=== PATIENT | female | born 1980 | race Caucasian/White ===

== ENCOUNTER → 2019-10-08 | Outpatient (CLI) | payer BC ==
--- NOTE | 2019-10-08 14:37 | MM ---
Reason for exam: clinical finding. Baseline mammogram. History: Patient had first child at age 33. Family history of breast cancer in mother, breast cancer in maternal grandmother, breast cancer in paternal grandmother, and breast cancer in maternal aunt. Physical Findings: Nurse Summary: 1cm nodule in the left breast at 1 o'clock (nurse demario). MG 3D Diag Mammo W/Cad LIZBETH Bilateral CC, MLO, and XCCL view(s) were taken. LM view(s) were taken of the left breast. The breast tissue is heterogeneously dense. This may lower the sensitivity of mammography. There is a spiculated 1.0cm mass in the left upper outer quadrant at the palpable. 3cm posterior to this there is a second upper outer quadrant 0.8cm mass. Just anterior and medial to the palpable mass there is architectural distortion. There are linear branching calcifications in the left upper outer quadrant spanning 3.0cm. No suspicious abnormality on the right breast. In the left lower inner quadrant 15cm from nipple there is a 4mm mass that does persist on additional images. These results were verbally communicated with the patient and result sheet given to the patient on 10/08/19. ASSESSMENT: Incomplete: need additional imaging evaluation, BI-RAD 0 RECOMMENDATION: Ultrasound of the left breast.
--- NOTE | 2019-10-08 14:42 | USB ---
Reason for exam: additional evaluation requested from abnormal screening. History: Patient had first child at age 33. Family history of breast cancer in mother, breast cancer in maternal grandmother, breast cancer in paternal grandmother, and breast cancer in maternal aunt. US Breast Workup LT Left complete breast ultrasound includes all four quadrants, the retroareolar region and axilla. Finding demonstrates a 1.1 x 1.1 x 1.5cm taller than wide, spiculated, solid lesion at 2 o'clock biopsy recommended, a 0.6 x 0.7 x 0.6cm taller than wide, spiculated, solid lesion at 2 o'clock biopsy recommended, a 0.7 x 0.7 x 0.6cm oval, hypoechoic lesion at 2 o'clock some increase through transmission, complicated cyst and a 1.0 x 0.8 x 0.7cm irregular, hypoechoic lesion at 2 o'clock biopsy recommended. No suspicious axillary adenopathy. These results were verbally communicated with the patient and result sheet given to the patient on 10/08/19. ASSESSMENT: Highly suggestive of malignancy, BI-RAD 5 RECOMMENDATION: Ultrasound core biopsy of the left breast. (x 2-3) Stereotactic core biopsy of the left breast. (lower inner quadrant) Called Dr. Pimentel's office with mammographic findings and has scheduled an appointment for the patient for 11/05/19 at 10:[address] Niño. Biopsy scheduled for 10/15/19 at 10:20. PRELIMINARY REPORT CALLED AND FAXED TO DR. NIÑO ON 10/08/19.
== END | disposition home or self-care (01) ==
LOC: RADMAMWWP 09:57
PROVIDERS: ATTEND Obstetrics & Gynecology
DX: N63.21 Unspecified lump in the left breast, upper outer quadrant (principal); R92.8 Other abnormal and inconclusive findings on diagnostic imaging of breast
CPT/HCPCS: 77062; 77066

== ENCOUNTER → 2019-10-15 | Outpatient (CLI) | payer BC ==
[2019-10-15 09:40] VITALS: RESP 16
[2019-10-15 11:54] VITALS: BP 137/83; PULSE 101; TEMP 98
--- NOTE | 2019-10-15 12:37 | MM ---
EXAMINATION TYPE: MG stereo VAD BX LT DATE OF EXAM: 10/15/2019 COMPARISON: Mammogram dated 10/08/2019 CLINICAL HISTORY: Abnormal mammogram. 4 mm mass in the lower inner quadrant of the left breast approx imately 15 cm from the nipple without sonographic correlate TECHNIQUE: Stereotactic guided core biopsy of left breast. FINDINGS: The procedure of stereotactic guided core biopsy was explained to the patient. Benefits, a lternatives, and risks were discussed. An informed consent was then obtained. Preprocedural timeout was performed. The pathway was chosen that best demonstrated the radiographic abnormality. This was CC from below a pproach. Preprocedural localization images were obtained and a 4 mm mass in the lower inner quadrant of the left breast was demonstrated. Coordinates were calculated. Subsequently 7 cc of lidocaine with out epinephrine was utilized to anesthetize the skin and deeper subcutaneous soft tissues. The needle was advanced to the appropriate depth. Prefire images were obtained ensuring appropriate location. P ostfire injection of 6 cc of lidocaine with epinephrine was utilized to anesthetize the site of biops y. A vacuum assisted biopsy gun was used to obtain 7 core samples. The patient tolerated the procedure well without any immediate complication. The patient was kept in the radiology department for short stay after the procedure and then discharged home in stable condi tion. Post biopsy mammogram shows the T-shaped biopsy marker to appear in satisfactory position rela tive to the targeted area of concern on the preprocedure images without migration. IMPRESSION: SUCCESSFUL, UNCOMPLICATED STEREOTACTIC GUIDED CORE BIOPSY OF A 4 MM MASS IN THE LOWER INNER QUADRANT OF THE LEFT BREAST, FULL PATHOLOGY RESULTS TO FOLLOW.
--- NOTE | 2019-10-15 13:07 | USB ---
EXAMINATION TYPE: US biopsy breast VAD LT, US biopsy breast add'l VAD LT DATE OF EXAM: 10/15/2019 CLINICAL HISTORY: R92.8 abn mammogram. TECHNIQUE: Ultrasound guided core biopsy of left breast. COMPARISON: Left breast mammogram and ultrasound dated 10/08/2019 FINDINGS: Consultation with the patient prior to the stereotactic guided biopsy and ultrasound-guided biopsy was had discussed the multiple sites requiring biopsy. The procedure of ultrasound guided cor e biopsy was explained to the patient. Benefits, alternatives, and risks were discussed. An informe d consent was then obtained. Preprocedural timeout was performed. Site A: The patient was placed in supine positioning for imaging and for the procedure. The overlyin g skin was prepped and draped in usual sterile fashion. 8 cc of 1% lidocaine was used as anesthetic i nto the skin and subcutaneous tissue up to an approximately 1.6 cm mass at the 2:00 position in the l eft breast. Under ultrasound guidance, a 12-gauge vacuum assisted biopsy gun device was used to obtain 7 core juan ples. Following this, a ribbon-shaped biopsy marker was left in mass. Site B: The patient was placed in supine positioning for imaging and for the procedure. The overlyin g skin was prepped and draped in usual sterile fashion. 8 cc of 1% lidocaine was used as anesthetic i nto the skin and subcutaneous tissue up to approximately 1 cm mass at the 2:00 position in the left b reast. Under ultrasound guidance, a 12-gauge vacuum assisted biopsy gun device was used to obtain 4 core juan ples. Following this, a coil-shaped biopsy marker biopsy marker was left in mass. Postprocedure mammogram demonstrates appropriate biopsy marker placement. The patient tolerated the p rocedure well without any immediate complication. The patient was kept in the radiology department f or short stay after the procedure and then discharged home in stable condition. IMPRESSION: Successful, uncomplicated ultrasound guided core biopsy of two highly suspicious masses a t the 2:00 position in the left breast, full pathology results to follow. Of note there are BI-RADS 5 highly suspicious linear branching calcifications in the left upper outer quadrant spanning 3 cm meena t are seen just anterior to the palpable mass and a third suspicious mass on ultrasound also at the 2 :00 position. Only 3 biopsies were performed in one day given the maximum dose of lidocaine. Biopsy w as performed of the lower inner quadrant mass under stereotactic technique to exclude multicentric di sease and biopsy was performed of the 2 furthest apart sonographic masses.
== END | disposition home or self-care (01) ==
LOC: RADMAMWWP 09:23
PROVIDERS: ATTEND Surgery
DX: N63.24 Unspecified lump in the left breast, lower inner quadrant (principal)
CPT/HCPCS: 19081; 19083; 19084; A4648 ×2; J2001

== ENCOUNTER → 2019-11-10 | Outpatient (CLI) | payer BC ==
[2019-11-10 09:10] LABS: HCT 43.4 % (34.0-46.0); MCH 29.8 pg (25.0-35.0); MCHC 32.4 g/dL (31.0-37.0); MCV 92.1 fL (80.0-100.0); Mean Platelet Volume 7.7; Platelet Count 255 k/uL (150-450); RBC 4.71 m/uL (3.80-5.40); RDW 12.1 % (11.5-15.5); WBC 5.2 k/uL (3.8-10.6)
[2019-11-10 17:40] LABS: African American GFR (CKD) 125.6 (60.0-200.0); Albumin 4.7 g/dL (3.80-4.90); Albumin/Globulin Ratio 2.14 (1.60-3.17); Anion Gap 12.9 mmol/L (4.00-12.00); BUN/Creat Ratio 11.43 Ratio (12.00-20.00); Calcium 9.8 mg/dL (8.7-10.3); Carbon Dioxide 23.1 mmol/L (21.6-31.8); Globulin 2.2 g/dL (1.6-3.3); Non-African American GFR(CKD) 108.4 (60.0-200.0); Potassium 4.6 mmol/L (3.5-5.5); Total Bilirubin 0.7 mg/dL (0.2-1.2); Total Protein 6.9 g/dL (6.2-8.2)
== END | disposition home or self-care (01) ==
LOC: LABWHC1 08:36
PROVIDERS: ATTEND Surgery
DX: C50.912 Malignant neoplasm of unspecified site of left female breast (principal)
CPT/HCPCS: 36415; 80053; 85027

== ENCOUNTER 2019-11-17 06:34 | Observation (INO) | payer BC ==
[2019-11-13 15:11] VITALS: BMI 34.4
--- NOTE | 2019-11-16 20:29 | P.GSHP ---
History of Present Illness H&P Date: 11/16/19 Chief Complaint: Left breast cancer 39-year-old female seen in mid October. She had complaints of mild pain left breast upper outer Pain radiated to the left axilla. Family history of breast cancer inernal aunt, maternal grandmother, paternal grandmother. Patient had a m ammogram showing abnormalities were breast upper outer quadrant and lower inner quadrant. She underwent ultrasound confirming 3 separate lesions upper outer quadrant. Ultrasound core biopsy of 2 of the furthest apparent lesions positive for grade 3 invasive ductal cancer. Stereo biopsy lower inner quadrant benign and concordant. ER/AK positive, HER-2/nasim negative. Patient has been interested in bilateral mastectomy with reconstruction since first evaluation. Past Medical History Past Medical History: Cancer, GERD/Reflux Additional Past Medical History / Comment(s): Left breast cancer, sinus arrhythmia, murmur, seasonal allergies. History of Any Multi-Drug Resistant Organisms: None Reported Past Surgical History: Section, Tubal Ligation Additional Past Surgical History / Comment(s): Finger surgery d/t infection, ectopic , Section X2. Past Anesthesia/Blood Transfusion Reactions: No Reported Reaction Past Psychological History: Anxiety, Depression Smoking Status: Never smoker Past Alcohol Use History: Rare Past Drug Use History: None Reported - Past Family History Mother Family Medical History: Cancer Additional Family Medical History / Comment(s): Breast cancer. Father Family Medical History: Diabetes Mellitus Medications and Allergies Home Medications Medication Instructions Recorded Confirmed Type ALPRAZolam [Xanax] 0.25 mg PO DAILY PRN 11/13/19 11/13/19 History Famotidine 20 mg PO DAILY 11/13/19 11/13/19 History Allergies Allergy/AdvReac Type Severity Reaction Status Date / Time No Known Allergies Allergy Verified 11/13/19 15:12 Surgical - Exam Physical exam: General: Well-developed, well-nourished HEENT: Normocephalic, sclerae nonicteric Left breast: 2 separate masses upper outer by 4 cm each measuring 1- 1.5 cm, no adenopathy, no other masses Right breast: No masses, no adenopathy Abdomen: Nontender, nondistended Extremities: No edema Neuro: Alert and oriented Assessment and Plan (1) Breast cancer, left Narrative/Plan: 39-year-old female with recently diagnosed left breast cancer. Genetic testing pending. Patient interested in bilateral mastectomy with reconstruction. She has been seen by plastic surgery. We'll proceed with bilateral simple mastectomy, left breast sentinel lymph biopsy and injection, possible axillary node dissection, with reconstruction by plastics. Risks of bleeding, infection, flap ischemia, seroma, scarring, dimpling, pain, nerve injury, numbness, recurrence, lymphedema, possible need for additional surgeries reviewed. The patient understands and wishes to proceed. Status: Acute Code(s): C50.912 - MALIGNANT NEOPLASM OF UNSPECIFIED SITE OF LEFT FEMALE BREAST SNOMED Code(s): 048446578
--- NOTE | 2019-11-16 20:32 | P.NAPBC ---
NAPBC Queries - NAPBC Queries Was patient's case review presented at [facility] tumor board? If no, comment.: Yes Was patient's pathology reviewed at [facility]? If no, comment.: Yes Was breast conservation surgery offered? If no, comment.: Yes Was sentinel node biopsy offered? If no, comment.: Yes Was diagnosis confirmed by percutaneous core biopsy? If no, comment.: Yes Is patient mastectomy patient?: Yes Was a preop referral to reconstructive surgeon offered?: Yes Clinical Stage: Clinical stage II a
[~2019-11-17 06:34] MED LIST: DEXAMETHASONE SOD PHOSPHATE 10 MG/ML 1 ML VIAL IV ONE; LIDOCAINE 1% 20 ML VIAL (10MG/ML) FOR IV START INTRADERMA PRN; ONDANSETRON 4 MG/2 ML VIAL IVP ONE; Pre Op ABX Message 1 EACH MISC MISCELLANE ONE; SCOPOLAMINE 1.5MG/72HR PATCH TRANSDERM ONE
[2019-11-17] MEDS: LACTATED RINGERS 1,000 ML IV SCH (07:24)
[2019-11-17] MEDS ORDERED: MIDAZOLAM 2 MG/2 ML VIAL IVP ONE ×2 (08:05→08:42)
[2019-11-17] MEDS ORDERED: fentaNYL (PF) 50 MCG/ML 2 ML AMP IVP ONE (08:42)
[2019-11-17] MEDS ORDERED: MIDAZOLAM 2 MG/2 ML VIAL ONE (08:56)
[2019-11-17] MEDS ORDERED: ROPIVACAINE 5 MG/ML 30 ML VIAL ONE (08:56)
[2019-11-17] MEDS ORDERED: LIDOCAINE 1% INJ 10MG/ML (20 ML MDV) ONE (08:56)
[2019-11-17] MEDS ORDERED: NEOSTIGMINE 1 MG/ML 10 ML VIAL ONE (08:56)
[2019-11-17] MEDS ORDERED: fentaNYL (PF) 50 MCG/ML 2 ML AMP ONE (08:56)
[2019-11-17] MEDS ORDERED: GLYCOPYRROLATE 0.2 MG/ML 2 ML VIAL ONE (08:56)
[2019-11-17] MEDS ORDERED: ROCURONIUM BROMIDE 10 MG/ML 5 ML VIAL IV ONE (08:56)
[2019-11-17] MEDS ORDERED: PROPOFOL 10 MG/ML 20 ML VIAL IV ONE (08:56)
[2019-11-17] MEDS ORDERED: ONDANSETRON 4 MG/2 ML VIAL ONE (08:56)
[2019-11-17] MEDS ORDERED: ceFAZolin 1,000 MG VIAL ONE (08:56)
[2019-11-17] MEDS ORDERED: SODIUM CHLORIDE 0.9% 50 ML with ceFAZolin 2,000 MG IV ONE ×2 (08:58)
--- NOTE | 2019-11-17 09:55 | NM ---
EXAMINATION TYPE: NM sentinel node injection DATE OF EXAM: 11/17/2019 COMPARISON: NONE HISTORY: LEFT BREAST CANCER TECHNIQUE AND FINDINGS: The procedure of sentinel lymph node injection was explained to the patient. The benefits, alternatives, and risks were discussed. An informed consent was then obtained. Overlying skin is cleaned with sterile alcohol. Following this, 521 uCi Tc99m Tilmanocept was inject ed in the upper outer aspect of the left nipple intradermally. The patient tolerated the procedure well without any immediate complication. The patient was kept in the radiology department for short stay after the procedure and then taken to surgery for surgical p rocedure what is presumed intraoperative gamma probe will be used for sentinel lymph node detection. IMPRESSION: Left breast radiotracer injection for sentinel node localization as above.
[2019-11-17] MEDS ORDERED: LACTATED RINGERS 1,000 ML IV ONE ×2 (10:17→11:49)
--- NOTE | 2019-11-17 10:40 | P.ANPRN ---
Procedure Note - Anesthesia - Nerve Block Performed Bilateral Other (see comment) Single Time Out Performed: Yes (841) Date of Procedure: 11/17/19 Procedure Start Time: 08:42 Procedure Stop Time: 08:49 Location of Patient: PreOp Indication: Acute Post-Operative Pain, Requested by Surgeon Specifically requested for management of pain by DrVictorino: Dalton Mullins Sedation Type: Sedate with meaningful contact maintained Preparation: Sterile Prep Position: Supine Catheter: None Needle Types: Pajunk Needle Gauge: 21, Other (see comment) (2 in x 2) Ultrasound used to visualize needle placement: Yes Ultrasound used to observe medication spread: Yes Injectate: 0.5% Ropivacaine (see comment for volume) (15cc on each side Divided for Pec 1 and 2) Blood Aspirated: No Pain Paresthesia on Injection Noted: No Resistance on Injection: Normal Image Stored and Saved: Yes Events: Uneventful and Well Tolerated
[2019-11-17] MEDS ORDERED: NALOXONE 0.4 MG/ML 1 ML VIAL IV PRN (12:13)
[2019-11-17] MEDS ORDERED: ONDANSETRON 4 MG/2 ML VIAL IVP PRN (12:13)
--- NOTE | 2019-11-17 12:21 | P.OP ---
Date of Procedure: 11/17/19 Procedure(s) Performed: PREOPERATIVE DIAGNOSIS: Left breast cancer POSTOPERATIVE DIAGNOSIS: Same PROCEDURE: Bilateral simple mastectomy with sentinel lymph node biopsy left breast with concurrent reconstruction SURGEON: Sam ANDERSL: See anesthesia records ANESTHESIA: General COMPLICATIONS: None OPERATIVE PROCEDURE: Patient was placed on the operating room table in the supine position. 2 mL of methylene blue was injected into the left subareolar space. The breast was then massaged for 5 minutes. The upper torso anteriorly was prepped and draped in usual sterile fashion. The left side was first addressed. The neoprobe was used to identify the hot spot in the left axilla. A curvilinear left axillary incision was made using a scalpel. Dissection through the subcutaneous tissues took place using electrocautery. The first sentinel node was identified. There appeared to be an adjacent one or possibly 2 nodes with this node. This was not blue in color. The size of the nodes were normal but given the matting I decided to send for frozen section. A second non-blue radioactive node was also identified and sent for frozen section as well. Thankfully both lymph nodes were found to be negative for metastatic disease. Dr. Mullins had marked out an elliptical shaped incision oriented vertically encompassing the nipple area where complex. The incision was created bilaterally using the scalpel. Subcutaneous flaps were raised using a combination of electrocautery and sharp dissection until the chest wall was reached circumferentially. The breast was removed from the chest wall at that time. The ligature was used for small visible vessels. No significant bleeding was encountered. On the left mastectomy side there was an area of induration at 3:00. This corresponded to the site of palpable abnormality. This was very close to the skin surface. A small sliver of tissue took place in the subcutaneous position left breast and sent for frozen section. This came back positive for malignancy. I decided at that time to remove a small portion of the skin with the underlying palpable area of induration. An elliptical incision was made measuring approximately 3.5 x 2.5 cm oriented horizontally. This was sent to pathology for permanent sectioning labeled 3:00 left breast skin. No other suspicious margins were seen along the mastectomy specimen bilaterally. Irrigation took place without evidence of bleeding. Dr. Mullins from plastic surgery then took over at this point for reconstruction. His portion of the procedure will be dictated separately. Formal closure was performed by Dr. Mullins. At that point I exited the room. The family was informed of the findings and progress of surgery. DISPOSITION: Patient to remain in the operating for completion and closure by Dr. Mullins.
[2019-11-17] MEDS: HYDROmorphone 0.5 MG/0.5 ML SYRINGE IVP PRN ×5 (13:25→21:02)
[2019-11-17] MEDS: D5-0.45% NACL WITH KCL 20MEQ/L 1,000 ML IV SCH ×2 (15:47→23:09)
[2019-11-17] MEDS: HEPARIN SODIUM,PORCINE 5,000 UNIT/ML 1 ML VIAL SQ SCH ×2 (16:28→23:21)
--- NOTE | 2019-11-17 16:30 | OP ---
OPERATIVE REPORT DATE OF PROCEDURE: November 17, 2019 SURGEON: Dr. Dalton Mullins PREOPERATIVE DIAGNOSES: 1. Acquired loss, left and right breasts. 2. Left breast cancer. POSTOPERATIVE DIAGNOSES: 1. Acquired loss, left and right breasts. 2. Left breast cancer. OPERATIVE PROCEDURE: 1. Immediate reconstruction, right breast, following mastectomy with insertion of tissue moth proofer and subsequent outpatient expansion. 2. Immediate reconstruction, left breast, following mastectomy with insertion of tissue moth proofer and subsequent outpatient expansion. 3. Implantation of reconstructive graft for right and left breast reconstruction. OPERATIVE INDICATIONS: The patient is a 39-year-old female diagnosed by biopsy with cancer to the left breast. She has elected to proceed with bilateral mastectomy procedures. She has multiple close family members, including mother, grandmother and maternal aunt with breast cancer. The patient was referred to my care for breast reconstruction and has elected upon a tissue moth proofer style reconstruction. She understands staged nature of breast reconstructive surgery as well as potential risks and complications related to today's surgery, including but not limited to hematoma, seroma, wound healing problems, postoperative infection, among others. She has requested I perform the surgery. OPERATIVE PROCEDURE SUMMARY: The patient is seen in the presurgical area. Markings are made, procedure reviewed, all questions answered. She is transported to the operating room, where she is placed in supine position. Following induction of general endotracheal anesthesia, the patient is prepped and draped in the usual fashion. Dr. Grupo Vargas and his surgical team then proceeded with the left sentinel lymph node excision and left and right simple mastectomies. I assisted Dr. Vargas with the simple mastectomies. The lymph node was reported as negative for cancer. The patient required an of an area of skin and subcutaneous tissue from the left breast, as the margin close to the skin was positive when assessed by frozen separately. Once all mastectomy and sentinel lymph node procedures were completed, instruments were changed as well as gloves and necessary equipment. The patient was under general endotracheal anesthesia in supine position. Sponge and needle counts in prior procedure were correct. I initiated the breast reconstruction starting on the right side. I identified the pectoralis major muscle where it joined the chest wall. Loose areolar connective tissue was divided, allowing entry into the potential plane between the pectoralis major and minor muscles was bluntly developed medial attachment fibers of the pectoralis major to ribs with use of cautery and all inferior attachments. To obtain sufficient muscle coverage of moth proofer required recruitment of additional muscle tissue, including rectus abdominis muscle and fascia anteriorly, external abdominal oblique muscle and fascia anterolaterally, and lateral serratus anterior muscle and fascia. This tissue was elevated through the approach described with cauterization. Hemostasis was assured under direct vision and with cautery as needed. Once the sufficient size of the muscular pocket was created, the site was packed open with multiple laparotomy sponges. Attention was turned toward the left breast reconstruction, which was completed in the same fashion, identifying the pectoralis major muscle on the lateral aspect, dividing loose areolar connective tissue with cautery, and then entering the potential plane between the pectoralis major and minor muscles bluntly developed medial attachment fibers of the pectoralis major muscle. Two ribs were released with cautery but not all sternal attachments and inferior distal muscle tissue recruited. Anterior, inferior rectus abdominis muscle and fascia, anterolateral external abdominal oblique muscle and fascia, and laterally serratus anterior muscle and fascia were all elevated through this approach with cautery. Hemostasis was maintained with cautery. Once a sufficient- sized submuscular pocket was created in a symmetrical fashion to the right side, surgery stopped. Irrigation was performed on each side. Hemostasis was excellent. Gloves were changed and tissue expanders were opened onto the field. Both tissue expanders measured 650 mL in volume from the [employer], reference number [id number]. The serial number for the right side was [id number], and for the left side the serial number was [id number]. The right side was placed first. New gloves were obtained, the device was opened, all air extracted. It was irrigated with saline; instilled 50 mL of 0.9 normal saline and inserted in the reconstructive cavity. Gloves were again changed and the left-sided tissue moth proofer opened. Again the device was irrigated with saline, all air extracted, and 50 mL of 0.9 normal saline was instilled. It was inserted in the reconstructive cavity under direct vision. Optimal position of each moth proofer was obtained by this method. The muscle flap tissue could not be closed on either side over the moth proofer without significant tension. Therefore SurgiMend reconstructive graft was opened onto the field. The SurgiMend was then fenestrated measuring 10 x 15 cm. Once revitalized with room-temperature saline, it was divided into equal portions and each portion placed into the reconstructive cavity on the right or left side deep to the muscle flap tissue with superficial expanders spanning the gap where the muscle could not be closed, and then the SurgiMend tissue was inset using interrupted and short running 3-0 Vicryl suture on each side. Complete coverage was now obtained. Nineteen round Angel drains were inserted into each surgical field and brought out through separate stab incisions in the right or left anterolateral chest wall and sutured in place with 2-0 Prolene. The mastectomy incision had been performed via modified vertical breast reduction style incision, as the patient had significant redundant skin and subcutaneous tissue as well as very large breasts. The incisions were now closed from the distal to proximal until 8 cm of vertical midline closure was obtained, and then the remaining portion of the mastectomy incision was closed in a circular fashion in pursestring style suture using 2-0 Prolene at the deep dermal level. The final skin closure was completed for the vertical member with running 5-0 Prolene, and beronica where necessary to help more finely reapproximate the epidermal edges. Drains were connected to closed-bulb suction and patent. The patient had two transverse incisions, one for several lymph node dissection and one for excision of necessary tissue related to her left mastectomy. These were now closed by approximating the deep dermis using inverted interrupted 4-0 Monocryl and completing the superficial dermal and epidermal closure with running 5-0 Prolene for the left axillary and left lateral chest wall areas. Surgical chiu were cleansed with saline, dried and postoperative bandages placed using sterile 1-inch paper tape over edge-to- edge repairs followed by Kerlix squares, Kerlix roll gauze, and positioning a size 5 mammary support. The patient was awakened from her anesthetic, extubated, and transferred to the recovery room in good condition with stable vital signs. COMPLICATIONS: There were no complications. ESTIMATED BLOOD LOSS: The estimated blood loss was 150 mL for all procedures combined today. MMODL / IJN: [id number] /
[2019-11-17] MEDS: HYDROcodone/APAP 5-325MG 1 EACH TAB PO PRN (19:59)
[2019-11-17] MEDS: FAMOTIDINE 20 MG TAB PO SCH (19:59)
[2019-11-17] MEDS: DOCUSATE 100 MG CAP PO SCH (20:00)
[2019-11-18] MEDS: HYDROcodone/APAP 5-325MG 1 EACH TAB PO PRN ×5 (01:41→23:49)
[2019-11-18] MEDS: HYDROmorphone 0.5 MG/0.5 ML SYRINGE IVP PRN ×2 (04:54→11:37)
[2019-11-18] MEDS: LACTATED RINGERS 1,000 ML IV SCH ×2 (07:26→22:26)
[2019-11-18 07:59] LABS: Basophils % (A) 1 %; Eosinophils % (A) 0 %; HCT 35.2 % (34.0-46.0); HGB 11.4 gm/dL (11.4-16.0); Lymphocytes # (A) 1.6 k/uL (1.0-4.8); Lymphocytes % (A) 19 %; MCH 30.3 pg (25.0-35.0); MCHC 32.5 g/dL (31.0-37.0); MCV 93.2 fL (80.0-100.0); Mean Platelet Volume 8.1; Monocytes # (A) 0.6 k/uL (0-1.0); Monocytes % (A) 7 %; Neutrophils # (A) 6.2 k/uL (1.3-7.7); Neutrophils % (A) 73 %; Platelet Count 177 k/uL (150-450); RBC 3.77 m/uL (3.80-5.40); RDW 12.4 % (11.5-15.5); WBC 8.5 k/uL (3.8-10.6)
[2019-11-18 08:06] LABS: African American GFR (CKD) >90 (>60 ml/min/1.73 sqM); Anion Gap 7 mmol/L; Blood Urea Nitrogen 5 mg/dL (7-17); Calcium 8.9 mg/dL (8.4-10.2); Carbon Dioxide 23 mmol/L (22-30); Chloride 107 mmol/L (98-107); Glucose 118 mg/dL (74-99); Non-African American GFR(CKD) >90 (>60 ml/min/1.73 sqM); Potassium 3.9 mmol/L (3.5-5.1); Sodium 137 mmol/L (137-145)
[2019-11-18] MEDS: FAMOTIDINE 20 MG TAB PO SCH ×2 (08:35→19:57)
[2019-11-18] MEDS: DOCUSATE 100 MG CAP PO SCH ×2 (08:35→19:57)
[2019-11-18] MEDS: D5-0.45% NACL WITH KCL 20MEQ/L 1,000 ML IV SCH ×3 (08:40→22:26)
[2019-11-18] MEDS: HEPARIN SODIUM,PORCINE 5,000 UNIT/ML 1 ML VIAL SQ SCH ×3 (08:45→23:48)
--- NOTE | 2019-11-18 09:26 | P.PN ---
<Jackeline Gan Diana - Last Filed: 11/18/19 09:20> Subjective Progress Note Date: 11/18/19 CHIEF COMPLAINT: Left breast cancer HISTORY OF PRESENT ILLNESS: 39-year-old female who is status post bilateral simple mastectomy with sentinel lymph node biopsy left breast by Dr. Vargas with concurrent reconstruction performed by Dr. Mullins. POD #1. Patient examined this morning at the bedside. She reports her pain is tolerable. Right DAVIN with 45cc drained this morning. Left DAVIN with 70cc emptied and then immediate 60cc. Nursing reports only 10cc from left DAVIN overnight. Patient has been ambulating in her room. Voiding without difficulty. Tolerating diet without nausea or vomiting. Vital signs stable. She is afebrile. Hemoglobin 11.4. PHYSICAL EXAM: VITAL SIGNS: Reviewed. GENERAL: Well-developed in no acute distress. HEENT: No sclera icterus. Extraocular movements grossly intact. Moist buccal mucosa. Head is atraumatic, normocephalic. CHEST: Dressings to chest clean dry intact. DAVIN intact x 2 with sanguinous drainage. ABDOMEN: Soft. Nondistended. Nontender. NEUROLOGIC: Alert and oriented. Cranial nerves II through XII grossly intact. ASSESSMENT: 1. Left breast cancer PLAN: Pain control Monitor drainage from DAVIN drains Activity as tolerated Discontinue IV fluids as patient is tolerating PO intake Nurse practitioner note has been reviewed by physician. Signing provider agrees with the documented findings, assessment, and plan of care. Objective - Vital Signs Vital signs: Vital Signs Temp 98.1 F 11/18/19 07:15 Pulse 60 11/18/19 07:15 Resp 16 11/18/19 07:15 BP 112/74 11/18/19 07:15 Pulse Ox 97 11/18/19 07:15 Intake & Output 11/17/19 11/18/19 11/18/19 18:59 06:59 18:59 Intake Total 2950 375 Output Total 500 110 Balance 2450 265 Weight 99.5 kg Intake: IV 2950 Intake, IV Titration 375 Amount D5-0.45% NaCl with KCl 375 20Meq/l 1,000 ml @ 125 mls/hr IV .Q8H EARNESTINE Rx#: [id number] Output: Drainage 50 110 Left Breast 30 Right Breast 50 80 Urine 300 Estimated Blood Loss 150 Other: # Voids 3 - Labs CBC & Chem 7: 11/18/19 07:04 11/18/19 07:04 Labs: Abnormal Lab Results - Last 24 Hours (Table) 11/18/19 11/18/19 Range/Units 07:04 07:04 RBC 3.77 L (3.80-5.40) m/uL BUN 5 L (7-17) mg/dL Glucose 118 H (74-99) mg/dL <Grupo Vargas - Last Filed: 11/18/19 12:38> Subjective As above. Patient's pain better than expected. Drain output noted. No hematoma on exam, mild ecchymosis, flaps without ischemia. Continue pain control today. Likely discharge tomorrow. Objective - Vital Signs Vital signs: Vital Signs Temp 98.1 F 11/18/19 07:15 Pulse 60 11/18/19 11:13 Resp 16 11/18/19 11:13 BP 112/74 11/18/19 07:15 Pulse Ox 97 11/18/19 07:15 Intake & Output 11/17/19 11/18/19 11/18/19 18:59 06:59 18:59 Intake Total 2950 375 Output Total 500 110 175 Balance 2450 265 -175 Weight 99.5 kg Intake: IV 2950 Intake, IV Titration 375 Amount D5-0.45% NaCl with KCl 375 20Meq/l 1,000 ml @ 125 mls/hr IV .Q8H EARNESTINE Rx#: [id number] Output: Drainage 50 110 175 Left Breast 30 130 Right Breast 50 80 45 Urine 300 Estimated Blood Loss 150 Other: Voiding Method Toilet # Voids 3 - Labs CBC & Chem 7: 11/18/19 07:04 11/18/19 07:04 Labs: Abnormal Lab Results - Last 24 Hours (Table) 11/18/19 11/18/19 Range/Units 07:04 07:04 RBC 3.77 L (3.80-5.40) m/uL BUN 5 L (7-17) mg/dL Glucose 118 H (74-99) mg/dL Assessment and Plan (1) Breast cancer, left Current Visit: No Status: Acute Code(s): C50.912 - MALIGNANT NEOPLASM OF UNSPECIFIED SITE OF LEFT FEMALE BREAST SNOMED Code(s): 125852550
[2019-11-19] MEDS: D5-0.45% NACL WITH KCL 20MEQ/L 1,000 ML IV SCH (04:00)
[2019-11-19] MEDS: HYDROcodone/APAP 5-325MG 1 EACH TAB PO PRN ×3 (04:01→12:47)
[2019-11-19] MEDS: FAMOTIDINE 20 MG TAB PO SCH (07:06)
[2019-11-19] MEDS: DOCUSATE 100 MG CAP PO SCH (07:07)
[2019-11-19] MEDS: HEPARIN SODIUM,PORCINE 5,000 UNIT/ML 1 ML VIAL SQ SCH (07:07)
[2019-11-19 07:46] VITALS: BP 110/73; PULSE 89; RESP 16; TEMP 98
[2019-11-19 08:36] LABS: Basophils % (A) 0 %; Eosinophils # (A) 0.2 k/uL (0-0.7); Eosinophils % (A) 4 %; HCT 30.9 % (34.0-46.0); HGB 10.6 gm/dL (11.4-16.0); Lymphocytes # (A) 1.4 k/uL (1.0-4.8); Lymphocytes % (A) 27 %; MCH 31.9 pg (25.0-35.0); MCHC 34.3 g/dL (31.0-37.0); MCV 92.9 fL (80.0-100.0); Mean Platelet Volume 8.1; Monocytes # (A) 0.4 k/uL (0-1.0); Monocytes % (A) 7 %; Neutrophils # (A) 3.2 k/uL (1.3-7.7); Neutrophils % (A) 60 %; Platelet Count 179 k/uL (150-450); RBC 3.32 m/uL (3.80-5.40); RDW 12.4 % (11.5-15.5); WBC 5.3 k/uL (3.8-10.6)
--- NOTE | 2019-11-19 11:44 | P.DS ---
<Jackeline Gan - Last Filed: 11/19/19 11:42> Providers Expected date of discharge: 11/19/19 Hospital Course: 39-year-old female who is status post bilateral simple mastectomy with sentinel lymph node biopsy left breast by Dr. Vargas with concurrent reconstruction performed by Dr. Mullins. Patient is doing well postoperatively without an immediate complications. Pain is controlled on oral medications. Vital signs stable. She is stable for discharge home today. Please see EMR for further details. Discharge Diagnosis: 1. Left breast cancer Nurse practitioner note has been reviewed by physician. Signing provider agrees with the documented findings, assessment, and plan of care. Patient Condition at Discharge: Stable Plan - Discharge Summary Discharge Rx Participant: Yes New Discharge Prescriptions: New Hydrocodone/Acetaminophen [[place] 5-325] 1 tab PO Q6HR PRN 3 Days #12 tab PRN Reason: Pain No Action Famotidine 20 mg PO DAILY ALPRAZolam [Xanax] 0.25 mg PO DAILY PRN PRN Reason: Anxiety Discharge Medication List ALPRAZolam [Xanax] 0.25 mg PO DAILY PRN 11/13/19 [History] Famotidine 20 mg PO DAILY 11/13/19 [History] Hydrocodone/Acetaminophen [[place] 5-325] 1 tab PO Q6HR PRN 3 Days #12 tab 11/18/19 [Rx] Follow up Appointment(s)/Referral(s): Grupo Vargas MD [Medical Doctor] - 11/26/19 9:40 am Dalton Mullins MD [STAFF PHYSICIAN] - 1 Week Patient Instructions/Handouts: Mastectomy (DC) Activity/Diet/Wound Care/Special Instructions: No driving while taking [place] No lifting over 10 pounds You may shower. No soaking or tub baths Very light activity until you are reevaluated at your follow up appointment with your surgeon Keep a log of DAVIN drain output and bring with you to follow-up appointment Discharge Disposition: HOME SELF-CARE <Grupo Vargas - Last Filed: 11/19/19 13:15> Providers Date of admission: 11/18/19 05:44 Attending physician: Grupo Vargas Primary care physician: Stated None - Discharge Diagnosis(es) (1) Breast cancer, left Status: Acute
== END 2019-11-19 12:51 | disposition home or self-care (01) ==
LOC: OR 06:34 → 4SSUR 13:07 → OR 11-18 05:43 → 4SSUR 11-18 05:44
PROVIDERS: ADMIT Surgery; ATTEND Surgery
DX: C50.412 Malignant neoplasm of upper-outer quadrant of left female breast (principal); N60.11 Diffuse cystic mastopathy of right breast; R01.1 Cardiac murmur, unspecified; K21.9 Gastro-esophageal reflux disease without esophagitis; I49.9 Cardiac arrhythmia, unspecified; F41.9 Anxiety disorder, unspecified; F32.9 Major depressive disorder, single episode, unspecified; J30.2 Other seasonal allergic rhinitis; Z98.890 Other specified postprocedural states; Z86.19 Personal history of other infectious and parasitic diseases; Z17.0 Estrogen receptor positive status [ER+]; Z98.51 Tubal ligation status; Z79.899 Other long term (current) drug therapy; Z80.3 Family history of malignant neoplasm of breast; Z83.3 Family history of diabetes mellitus
CPT/HCPCS: 81025; 64450; 76942; 88305; 80048; 85025 ×2; 88342; 88331; 88307; 88341; 38792; 19303; 19357; 38525; G0378 ×2; C1763; A9520; J2250; J1644 ×3; J1100; J2710; J2405; J0690; J2001; J3010; J2795; J2704; J1170 ×2

== ENCOUNTER → 2020-05-18 | Outpatient (CLI) | payer BC | END | disposition home or self-care (01) | LOC: LABWHC1 11:04 | PROVIDERS: ATTEND Plastic Surgery | DX: U07.1 COVID-19 (principal) | CPT/HCPCS: U0003; C9803 ==

== ENCOUNTER 2020-05-24 06:10 | Day surgery (SDC) | payer BC ==
[2020-05-18 13:10] VITALS: BMI 26.4
[~2020-05-24 06:10] MED LIST changes: -DEXAMETHASONE SOD PHOSPHATE 10 MG/ML 1 ML VIAL IV ONE; +HYDROmorphone 0.5 MG/0.5 ML SYRINGE IVP PRN; +LACTATED RINGERS 1,000 ML IV SCH; +LIDOCAINE 1% (10MG/ML) FOR IV START INTRADERMA PRN; -LIDOCAINE 1% 20 ML VIAL (10MG/ML) FOR IV START INTRADERMA PRN; +MIDAZOLAM 2 MG/2 ML VIAL IV PRN; -ONDANSETRON 4 MG/2 ML VIAL IVP ONE; -Pre Op ABX Message 1 EACH MISC MISCELLANE ONE; -SCOPOLAMINE 1.5MG/72HR PATCH TRANSDERM ONE
[2020-05-24] MEDS ORDERED: ONDANSETRON 4 MG/2 ML VIAL ONE (07:05)
[2020-05-24] MEDS ORDERED: DEXAMETHASONE SOD PHOSPHATE 10 MG/ML 1 ML VIAL IV ONE (07:20)
[2020-05-24] MEDS ORDERED: ONDANSETRON 4 MG/2 ML VIAL IVP ONE (07:20)
[2020-05-24] MEDS ORDERED: SUCCINYLCHOLINE CHLORIDE 100 MG/5 ML SYR IV ONE (07:23)
[2020-05-24] MEDS ORDERED: ROCURONIUM BROMIDE 10 MG/ML 5 ML VIAL IV ONE (07:23)
[2020-05-24] MEDS ORDERED: MIDAZOLAM 2 MG/2 ML VIAL ONE (07:23)
[2020-05-24] MEDS ORDERED: LIDOCAINE 1% INJ 10MG/ML (20 ML MDV) ONE (07:23)
[2020-05-24] MEDS ORDERED: KETOROLAC 30 MG/ML 1 ML VIAL ONE (07:23)
[2020-05-24] MEDS ORDERED: fentaNYL (PF) 50 MCG/ML 2 ML AMP ONE (07:23)
[2020-05-24] MEDS ORDERED: PROPOFOL 10 MG/ML 20 ML VIAL IV ONE (07:23)
[2020-05-24 07:49] LABS: Anisocytosis Slight; Basophils % (A) 1 %; Eosinophils # (A) 0.4 k/uL (0-0.7); Eosinophils % (A) 9 %; HCT 36.9 % (34.0-46.0); HGB 11.3 gm/dL (11.4-16.0); Hypochromasia Slight; Lymphocytes # (A) 1.1 k/uL (1.0-4.8); Lymphocytes % (A) 25 %; MCH 26.3 pg (25.0-35.0); MCHC 30.7 g/dL (31.0-37.0); MCV 85.8 fL (80.0-100.0); Mean Platelet Volume 7.4; Monocytes # (A) 0.2 k/uL (0-1.0); Monocytes % (A) 5 %; Neutrophils # (A) 2.5 k/uL (1.3-7.7); Neutrophils % (A) 59 %; Platelet Count 253 k/uL (150-450); RDW 16.2 % (11.5-15.5); WBC 4.2 k/uL (3.8-10.6)
[2020-05-24] MEDS ORDERED: LACTATED RINGERS 1,000 ML IV ONE (09:29)
[2020-05-24 10:14] VITALS: TEMP 97
[2020-05-24] MEDS ORDERED: HYDROcodone/APAP 5-325MG 1 EACH TAB ONE (11:20)
--- NOTE | 2020-05-24 11:27 | OP ---
OPERATIVE REPORT DATE OF SURGERY: May 24, 2020. SURGEON: Dr. Dalton Mullins. PREOPERATIVE DIAGNOSES: 1. Acquired loss of right and left breast. 2. Personal history of breast cancer. 3. Status post bilateral mastectomy for treatment of breast cancer. 4. Acquired deformity of right and left reconstructed breast. 5. Acquired loss of right and left breast inframammary fold. POSTOPERATIVE DIAGNOSES: 1. Acquired loss of bilateral breasts. 2. Personal history of breast cancer. 3. Personal history of bilateral mastectomy. 4. Acquired deformity of right left reconstructed breast. 5. Acquired loss right and left breast inframammary fold. OPERATIVE PROCEDURES: 1. Replace right breast tissue slide attendant with silicone breast implant for right breast reconstruction. 2. Revision right reconstructed breast. 3. Replace left breast tissue slide attendant with silicone breast implant for left breast reconstruction. 4. Revision left reconstructed breast. 5. Reconstruction of right and left inframammary folds via local advancement flaps, 96 square cm. 6. Implantation of reconstructive graft for right and left breast reconstruction, 300 square cm. OPERATIVE INDICATIONS: The patient is a 39-year-old female who has undergone bilateral mastectomy for treatment of breast cancer with immediate reconstruction at that time using a tissue slide attendant technique. The patient has completed subsequent outpatient expansion and her postmastectomy chemotherapy and is returning today for the 2nd stage of her breast reconstruction process which will include replacement of her tissue slide attendant with silicone breast implants, revision of the right and left reconstructed breast due to contour irregularities and abnormalities caused by the mastectomy and expansion processes, also reconstruction of right and left inframammary folds that have been effaced by the mastectomy and expansion processes. The patient understands there is a potential significant risks and complications associated with the procedure including postoperative seroma, which has been a problem for her after her last surgery. The patient has specifically requested I do not use drains under any circumstances, even if I feel they are surgically indicated. I have discussed this with the patient in the office and with her family present on several occasions and she is firm in this belief that she does not want a drain under any circumstance, even if it meant that she would lose the reconstruction. I have agreed with this with the patient's full knowledge and consent to proceed in this manner. Additional potential risks and complications commonly associated with this procedure include, but not limited to hematoma, wound healing problems, infection, among others. The patient also understands her potential risks and complications related to anesthesia. She has requested I perform today's surgery and fully understands that she will likely need additional surgery in the future to obtain a final optimal result. OPERATIVE PROCEDURE SUMMARY: The patient is seen in the presurgical area, markings made. Procedure reviewed. All questions answered. She was transported to the operative room where she was placed in supine position. Following induction of general tracheal anesthesia, the patient is prepped and draped in usual fashion. The patient has a prior mastectomy procedure performed through a modified vertical breast reduction type incision due to the large breasts she had. A vertical meridian type incision was present from last surgery on each side. This was used for today's reconstructive incision. These areas were marked in the right left breast with skin marker. Surgery initiated on the right side, dividing skin in full-thickness fashion followed by the use of cauterization to divide subcutaneous tissue until identifying the underlying muscle flap layers. The skin and subcutaneous tissue were then dissected off the muscle flap layer with cautery using lighted retractors to release contour irregularities and unevenness and also to allow for optimal draping following the procedure to obtain the best result. With this completed on the right side, the same portion of procedure was now completed on the left. Again, making the incision as drawn with 10 blade scalpel dividing skin full- thickness fashion followed by cauterization dividing subcutaneous tissue identifying the muscle flap fascia layers. The skin and subcutaneous tissue was then elevated off the muscle flap bricklayer tender the breast reconstruction again for the same reasons on the right to release contour irregularities and abnormalities caused by the expansion reconstructive and healing process to optimize the postoperative result and allow for proper draping. With this completed on each side, irrigation was performed. Hemostasis was excellent. Hemostasis was maintained both areas of cauterization. A lower transverse incision was made through the muscle flap tissue on the left than the right with cauterization exposing the slide attendant. A small meridian vertical incision was also needed as expanders were quite large and could not be withdrawn through the transverse incision on each side. The expanders were then ruptured with an 18-gauge needle and saline removed. Both expanders removed intact and discarded. The expansion cavity appeared normal. They were irrigated. There was no granulation tissue. No exudates on either side. The expansion capsule on each side was well formed and appeared healthy. The expansion capsules were now divided in cruciate fashion on both sides using cauterization to release the tightness of the structure. Additional dissection was performed on the left side to create the cavity in a more symmetrical fashion to the right. Prior to surgery it was noted the left side was slightly smaller in different shape and dissection was now performed on the muscle flap layers to adjust for this. Once this was completed, irrigation was performed. Hemostasis maintained with cautery. The inframammary fold for the right and left side were now reconstructed. The flap for the left side measured 20 x 2 square cm. The flap was elevated through the inferior portion of the muscle capsular incision elevating skin subcutaneous tissue off the anterior chest wall region where marked. Hemostasis maintained with cautery while dissecting. Once the flap was elevated and secured to the periosteal rib tissue in the desired location using interrupted 2-0 Vicryl creating discrete inframammary fold. Now the right fold was reconstructed in a slightly different size measuring 23 transversely by 2 cm vertically. Again, the folds elevated through the inferior capsulotomy incision made when the muscle flap was divided. Skin and subcutaneous tissue were elevated in the dimensions described with cautery. Hemostasis maintained with cautery. Once elevated, the flap was advanced cephalad and secured to rib periosteal tissues using interrupted 2-0 Vicryl, creating a discrete inframammary fold in a symmetrical location to the left. Irrigation was performed. Hemostasis was excellent on each side. The cavities were sized. Temporary breast implant sizer was opened on the field. Several implant sizes were evaluated. However, the 650 mL sizer appeared optimal on both sides. The patient seated up for evaluation, incision temporary closed with beronica. She was returned to supine position. [place] removed and temporary implant Sizer was removed. Cavities were irrigated. Hemostasis was excellent. Gloves were now changed. Breast implants opened onto the field. Both breast implants were the same model number from [employer] soft touch breast implant from [employer] style SSX 600 mL volume. Reference number for both devices was SSX-650 the left-sided device, serial number was [id number] and the right-sided device, serial number was [id number]. The left-sided device was opened 1st with fresh gloves. The device was irrigated. The implant was only handled by surgeon and inserted directly in the reconstructive cavity. The muscle flap tissue fit tightly over the implant and could not be completely advanced over the implant. Therefore, the implant was taken out temporarily, placed back in its container, irrigated with saline. SurgiMend was opened onto the field measuring 10 x 15 cm. Two pieces were opened as it was anticipated this would be the same situation on the right. Once the SurgiMend was re-vitalized with room temperature saline, SurgiMend was secured to the just above the inframammary fold flap on both breast reconstruction areas and sutured into place, oriented in a transverse fashion for the lower 1/3 of the reconstruction, securing the SurgiMend just above the fold with interrupted 3-0 Vicryl sutures. Returning to the left side using new gloves again, the implant was inserted reconstructive cavity. The muscle flap advanced in a caudad direction over the implant and SurgiMend advanced in cephalad manner and placed deep to the muscle flap. This muscle flap and SurgiMend were then inset to each other providing complete coverage. The same portion of the procedure was now complete on the right side, placing the right breast implant into the reconstructive cavity, advancing the muscle flap caudad over the implant and SurgiMend cephalad and just underneath the muscle flap tissue. The muscle flap tissue and SurgiMend were then inset to each other using interrupted 3-0 Vicryl. This was completed on both sides. Complete coverage obtained on both sides. Irrigation was performed. Hemostasis was excellent. The incisions were now closed on the right left side, first approximating Mark's layer using inverted interrupted 3-0 Vicryl. Then closed the deep dermis using inverted interrupted 4-0 Monocryl and completing the superficial dermal epidermal closure with beronica. The surgical field was then cleansed with saline, dried. Postoperative bandages placed using 4x4s, ABD pads, secured with 3M Medipore tape and then positioned a size 4 mammary support. The patient was then awakened from her anesthetic, extubated, and transferred to the recovery room in good condition stable vital signs. There were no complications. ESTIMATED BLOOD LOSS: Was 50 mL. MMODL / IJN: [id number] /
[2020-05-24] MEDS ORDERED: HYDROcodone/APAP 5-325MG 1 EACH TAB PO ONE (11:30)
[2020-05-24 11:54] VITALS: BP 118/76; PULSE 94; RESP 16
== END 2020-05-24 12:12 | disposition home or self-care (01) ==
LOC: OR 06:10
PROVIDERS: ATTEND Plastic Surgery
DX: C50.912 Malignant neoplasm of unspecified site of left female breast (principal); R01.1 Cardiac murmur, unspecified; F41.9 Anxiety disorder, unspecified; F32.9 Major depressive disorder, single episode, unspecified; Z90.13 Acquired absence of bilateral breasts and nipples; Z98.890 Other specified postprocedural states; Z79.810 Long term (current) use of selective estrogen receptor modulators (SERMs); Z79.899 Other long term (current) drug therapy; Z92.21 Personal history of antineoplastic chemotherapy; Z80.3 Family history of malignant neoplasm of breast; Z84.89 Family history of other specified conditions
CPT/HCPCS: 11970; 19380; 15777; 14301; 14302 ×6; 85025; J2250; J1100; J0690; J2405; J2001; J3010; J1885; J0330; J2704; 81025

== ENCOUNTER 2020-06-03 17:18 | Emergency (ER) | payer BC ==
[2020-06-03 17:47] VITALS: RESP 18
--- NOTE | 2020-06-03 19:26 | ED ---
General Adult HPI - General Chief complaint: Skin/Abscess/Foreign Body Stated complaint: Post op bleeding Time Seen by Provider: 06/03/20 17:53 Source: patient, RN notes reviewed, old records reviewed Mode of arrival: ambulatory Limitations: no limitations - History of Present Illness Initial comments: 39-year-old female patient in presents to ED for evaluation of right breast. Patient had breast implants placed 10 days ago. Patient is status post mastectomy, spacers and chemotherapy following breast cancer. Patient has been in remission since February. Patient reports that she has had bleeding on the right side at the incision site since the surgery. Describes it as oozing. Denies any true fevers, subjective fevers or chills, chest pain shortness of breath. She denies any other acute complaints. Systemic: Pt denies fatigue, fever/chills, rash. Pt denies weakness, night sweats, weight loss. Neuro: Pt denies headache, visual disturbances, syncope or pre-syncope. HEENT: Pt denies ocular discharge or irritation, otalgia, rhinorrhea, pharyngitis or notable lymphadenopathy. Cardiopulmonary: Pt denies chest pain, SOB, heart palpitations, dyspnea on exertion. Abdominal/GI: Pt denies abdominal pain, n/v/d. : Pt denies dysuria, burning w/ urination, frequency/urgency. Denies new onset urinary or bowel incontinence. MSK: Pt denies myalgia, loss of strength or function in extremities. Neuro: Pt denies new onset weakness, paresthesias. - Related Data Home Medications Medication Instructions Recorded Confirmed ALPRAZolam [Xanax] 0.5 mg PO TID PRN 11/13/19 06/03/20 Vitamin D3 Gummy 2 tab PO DAILY 05/18/20 06/03/20 Tamoxifen [Nolvadex] 20 mg PO DAILY 06/03/20 06/03/20 Venlafaxine HCl 75 mg PO DAILY 06/03/20 06/03/20 Zolpidem Tartrate [Ambien] 10 mg PO HS PRN 06/03/20 06/03/20 Allergies Allergy/AdvReac Type Severity Reaction Status Date / Time No Known Allergies Allergy Verified 06/03/20 18:44 Review of Systems ROS Statement: Those systems with pertinent positive or pertinent negative responses have been documented in the HPI. ROS Other: All systems not noted in ROS Statement are negative. Past Medical History Past Medical History: Cancer Additional Past Medical History / Comment(s): Left breast cancer, sinus arrhythmia, murmur, seasonal allergies. white coat syndrome with b/p, anemia recent iron infusions History of Any Multi-Drug Resistant Organisms: None Reported Past Surgical History: Section, Tubal Ligation Additional Past Surgical History / Comment(s): Finger surgery d/t infection, ec topic , Section X2. Past Anesthesia/Blood Transfusion Reactions: No Reported Reaction Past Psychological History: Anxiety, Depression Smoking Status: Never smoker - Past Family History Mother Family Medical History: Cancer Additional Family Medical History / Comment(s): Breast cancer. Father Family Medical History: Diabetes Mellitus General Exam - General Exam Comments Initial Comments: Constitutional: NAD, AOX3, Pt has pleasant affect. HEENT: NC/AT, trachea midline, neck supple, no lymphadenopathy. External ears appear normal, without discharge. Mucous membranes moist. Eyes PERRLA, EOM intact. There is no scleral icterus. No pallor noted. Cardiopulmonary: RRR, no murmurs, rubs or gallops, no JVD noted. Lungs CTAB in anterior and posterior chiu. No peripheral edema. Neuro: CN II-XII grossly intact. No nuchal rigidity. MSK: Extremities are warm and well perfused. Derm: Incision site on right breast is examined. There are some localized ecchymoses. No erythema or streaking purulent drainage. Mild tenderness. The incision site on the left breast is also examined and is any erythema or drainage. Chaperogned by fadia. Limitations: no limitations Course Vital Signs 06/03/20 17:42 Temperature 98.2 F Pulse Rate 94 Respiratory 18 Rate Blood Pressure 120/82 O2 Sat by Pulse 99 Oximetry Medical Decision Making - Medical Decision Making 39-year-old female patient with seizure evaluation of right breast after she had surgery 10 days ago she's been having some bloody drainage. Patient will signs are stable, afebrile. Physical exam doesn't display some localized ecchymoses without any erythema or streaking. Left investigations reveal a hemoglobin of 11 and platelets of 285. Ultrasound displayed sinus compatible with hematoma. Patient will be discharged outpatient follow-up with surgeon as well as strict return precautions. Case discussed with Dr. Henderson. - Lab Data Result diagrams: 06/03/20 19:08 Lab Results 08/28/20 Range/Units 19:08 WBC 7.1 (3.8-10.6) k/uL RBC 4.08 (3.80-5.40) m/uL Hgb 11.0 L (11.4-16.0) gm/dL Hct 35.3 (34.0-46.0) % MCV 86.4 (80.0-100.0) fL MCH 27.0 (25.0-35.0) pg MCHC 31.2 (31.0-37.0) g/dL RDW 17.5 H (11.5-15.5) % Plt Count 285 (150-450) k/uL Neutrophils % 75 % Lymphocytes % 14 % Monocytes % 5 % Eosinophils % 3 % Basophils % 0 % Neutrophils # 5.3 (1.3-7.7) k/uL Lymphocytes # 1.0 (1.0-4.8) k/uL Monocytes # 0.4 (0-1.0) k/uL Eosinophils # 0.2 (0-0.7) k/uL Basophils # 0.0 (0-0.2) k/uL Hypochromasia Slight Anisocytosis Slight Disposition Clinical Impression: Hematoma Disposition: HOME SELF-CARE Condition: Stable Instructions (If sedation given, give patient instructions): Hematoma (ED) Additional Instructions: Follow up with primary care provider and surgeon tomorrow. Return to ER if any worsening symptoms. This includes worsening symptoms, fevers, redness, change in drainage. Is patient prescribed a controlled substance at d/c from ED?: No Referrals: Dorothea Vargas MD [Primary Care Provider] - 1-2 days
[2020-06-03 19:28] LABS: Anisocytosis Slight; Basophils % (A) 0 %; Eosinophils # (A) 0.2 k/uL (0-0.7); Eosinophils % (A) 3 %; HCT 35.3 % (34.0-46.0); Hypochromasia Slight; Lymphocytes % (A) 14 %; MCHC 31.2 g/dL (31.0-37.0); MCV 86.4 fL (80.0-100.0); Monocytes # (A) 0.4 k/uL (0-1.0); Monocytes % (A) 5 %; Neutrophils # (A) 5.3 k/uL (1.3-7.7); Neutrophils % (A) 75 %; Platelet Count 285 k/uL (150-450); RBC 4.08 m/uL (3.80-5.40); RDW 17.5 % (11.5-15.5); WBC 7.1 k/uL (3.8-10.6)
--- NOTE | 2020-06-03 20:10 | USB ---
EXAMINATION TYPE: US breast limited RT DATE OF EXAM: 06/03/2020 COMPARISON: NONE CLINICAL HISTORY: just breast no axillae. History breast CA, patient states she had reconstruction santos rgery 10 days ago, enlarged right breast with bleeding from incision. Right breast: 9.3 x 1.2 x 11.9cm hypoechoic area with some vascularity seen anterior to implant along incision. Findings appear compatible with a hematoma. This lies just above the patient's implant. IMPRESSION: 1. Benign findings 2. BI-RADS 2.
[2020-06-03 20:33] VITALS: BP 124/77; PULSE 88; TEMP 97.9
== END 2020-06-03 20:33 | disposition home or self-care (01) ==
LOC: EC 17:18
DX: L76.32 Postprocedural hematoma of skin and subcutaneous tissue following other procedure (principal); F41.9 Anxiety disorder, unspecified; F32.9 Major depressive disorder, single episode, unspecified; Z85.3 Personal history of malignant neoplasm of breast; Z92.21 Personal history of antineoplastic chemotherapy; Z79.899 Other long term (current) drug therapy
CPT/HCPCS: 36415; 85025; 99284